=== PATIENT | female | born 1935 | race Caucasian/White ===

== ENCOUNTER 2020-01-11 10:53 | Emergency (ER) | payer MEDICARE, OTHER ==
[~2020-01-11] VITALS: Ht 162 cm; Wt 77.0 kg
[~2020-01-11 10:53] MED LIST: ASPI-74 PO; HYDR12.570 PO; LTN005OP2 OP
--- NOTE | 2020-01-11 11:38 | ED Fall/Injury ---
General Chief Complaint: Upper Extremity Stated Complaint: LEFT ARM INJ Nursing Triage Note: PT STATES SHE FELL OFF HER BACK PORCH, LESS THAN 2 STEPS, CC OF PAIN TO THE LT UPPER ARM, DENIES HITTING HER HEAD OR ANY OTHER PAIN. STATES SHE CAN'T MOVE THE 3-5TH FINGERS VERY WELL AND ARE NUMB. Source: patient Exam Limitations: no limitations History of Present Illness Date Seen by Provider: January 11, 2020 Time Seen by Provider: 11:06 Initial Comments This 84-year-old woman presents to the emergency room with left upper arm injury after missing a step and falling while going out on the porch to tend to ache tomato plant. She denies any other injury. She can feel/hear crepitus at the mid humerus. She takes aspirin but no other blood thinning medications. She denies any prodrome before the fall such as lightheadedness, dizziness, etc. Allergies and Home Medications Allergies Coded Allergies: Penicillins (Unverified Allergy, 05/31/10) Home Medications Hydrocodone/Acetaminophen 1 Each Tablet, 0.5-1 EACH PO Q6H PRN for PAIN- BREAKTHROUGH Prescribed by: ALEJO ROGERS on 01/11/20 1154 Latanoprost 2.5 Ml Drops, 1 DROP OP UD, (Reported) Patient Home Medication List Home Medication List Reviewed: Yes Review of Systems Review of Systems Constitutional: no symptoms reported Eyes: No Symptoms Reported Ears, Nose, Mouth, Throat: no symptoms reported Respiratory: no symptoms reported Cardiovascular: no symptoms reported Gastrointestinal: no symptoms reported Genitourinary: no symptoms reported : No Musculoskeletal: see HPI Skin: other (bruising) Psychiatric/Neurological: No Symptoms Reported Past Qlfyftq-Cksqge-Cquacd Hx Patient Social History Alcohol Use: Denies Use Recreational Drug Use: No Smoking Status: Former Smoker Type Used: Cigarettes Former Smoker, Quit: December 14, 1998 Recent Foreign Travel: No Contact w/Someone Who Travel: No Recent Infectious Disease Expo: No Physical Abuse: No Sexual Abuse: No Mistreated: No Fear: No Immunizations Up To Date Tetanus Booster (TDap): More than 5yrs Seasonal Allergies Seasonal Allergies: Yes Past Medical History Surgeries: No Respiratory: No Cardiac: Yes Atrial Fibrillation Neurological: No Genitourinary: No Gastrointestinal: No Musculoskeletal: No Endocrine: Yes Diabetes, Non-Insulin dep HEENT: No Cancer: No Psychosocial: No Integumentary: No Physical Exam Vital Signs Vital Signs - First Documented 01/11/20 11:07 Temp 36.6 Pulse 110 Resp 20 B/P (MAP) 134/88 (103) Pulse Ox 98 O2 Delivery Room Air Capillary Refill : Less Than 3 Seconds Height, Weight, BMI Height: '" Weight: lbs. oz. kg; 29.00 BMI Method:Stated General Appearance: WD/WN, mild distress HEENT: PERRL/EOMI, normal ENT inspection Neck: normal inspection Cardiovascular: regular rate, rhythm, no edema, no murmur Respiratory: lungs clear, normal breath sounds, no respiratory distress Extremities: other (subtle deformity of the left mid upper arm with tenderness. Remainder of the left upper extremity is unremarkable. Radial pulse. Distal sensation and capillary refill intact. 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, no motor/sensory deficits, alert, normal mood/affect, oriented x 3 Skin: warm/dry, ecchymosis Db Coma Score Best Eye Response: (4) Open Spontaneously Best Verbal Response: (5) Oriented Best Motor Response: (6) Obeys Commands Db Total: 15 Progress/Results/Core Measures Results/Orders My Orders Orders - ALEJO AVALOS MD Humerus, Left, 2 Views (01/11/20 11:12) Vital Signs/I&O 01/11/20 01/11/20 11:07 12:15 Temp 36.6 36.6 Pulse 110 93 Resp 20 20 B/P (MAP) 134/88 (103) 119/81 (103) Pulse Ox 98 98 O2 Delivery Room Air Room Air Blood Pressure Mean: 103 Progress Progress Note : Progress Note X-rays were obtained and comminuted fracture of the left humerus shaft was identified. Case was discussed with Dr. Boykin. Patient was placed in a sling and instructed to follow-up. She declined any pain management while in the ER. Diagnostic Imaging Diagonstic Imaging: Xray Plain Films/CT/US/NM/MRI: other (left humerus) Comments Left humerus x-ray viewed by me and report reviewed. There is a comminuted displaced shaft fracture. See report below. NAME: JESSICA ZELAYA [facility] REC#: [id number] PT STATUS: REG ER : 1935 PHYSICIAN: ALEJO AVALOS MD ADMIT DATE: 01/11/20/ER Signed Date of Exam:01/11/20 HUMERUS, LEFT, 2 VIEWS INDICATION: Post fall TECHNIQUE: 2 views of the left humerus CORRELATION STUDY: None FINDINGS: Comminuted fracture of the left humeral shaft present. There is lateral slightly posterior displacement approximately the width of the main fracture fragment. Additional butterfly component projects posteriorly and laterally as well. There is retraction and impaction of approximately 4 cm. Angulation apex laterally. Visualized portion shoulder and elbow are otherwise unremarkable. IMPRESSION: 1. Comminuted impacted displaced angulated fracture left mid humerus. Dictated by: Dictated on workstation # [id number] Dict: 01/11/20 1153 Trans: 01/11/20 1158 DORCAS [id number] Interpreted by: DALE GIANG DO Electronically signed by: DALE GIANG DO 01/11/20 1158 Departure Impression Primary Impression: Left humeral fracture Qualified Codes: S42.352A - Displaced comminuted fracture of shaft of humer us, left arm, initial encounter for closed fracture Additional Impression: Fall on stairs Qualified Codes: W10.9XXA - Fall (on) (from) unspecified stairs and steps, initial encounter Disposition: 01 HOME, SELF-CARE Condition: Stable Departure-Patient Inst. Referrals: ANDRES BOYKIN DO (PCP/Family) Primary Care Physician Patient Instructions: Upper Arm Fracture Add. Discharge Instructions: You may ice your arm in 20 minute intervals to reduce pain and swelling. Keep your arm in the sling is much as possible. If it must be removed from the sling, have someone help you support the arm. Follow-up with Dr. Boykin as soon as possible. Please call today for follow- up appointment. For minor pain you may use Tylenol up to 1000 mg every 6 hours as needed. Use hydrocodone as prescribed for more severe pain. If you use hydrocodone, you may wish to also use a stool softener such as Colace to prevent constipation. Return to care if you have any further problems or concerns. All discharge instructions reviewed with patient and/or family. Voiced understanding. Scripts Hydrocodone/Acetaminophen (Hydrocodone-Acetamin 5-325 mg) 1 Each Tablet 0.5-1 EACH PO Q6H PRN for PAIN-BREAKTHROUGH, #20 TAB Prov: ALEJO AVALOS MD 01/11/20 Copy Copies To 1: ANDRES BOYKIN JOSHUA T MD January 11, 2020 11:38
[2020-01-11] MEDS ORDERED: HYDR-83 PO (11:54)
--- NOTE | 2020-01-11 11:56 | Diagnostic Imaging Report ---
INDICATION: Post fall TECHNIQUE: 2 views of the left humerus CORRELATION STUDY: None FINDINGS: Comminuted fracture of the left humeral shaft present. There is lateral slightly posterior displacement approximately the width of the main fracture fragment. Additional butterfly component projects posteriorly and laterally as well. There is retraction and impaction of approximately 4 cm. Angulation apex laterally. Visualized portion shoulder and elbow are otherwise unremarkable. IMPRESSION: 1. Comminuted impacted displaced angulated fracture left mid humerus. Dictated by: Dictated on workstation # [id number]
[2020-01-11 12:15] VITALS: BP 119/81
== END 2020-01-11 12:14 | disposition home or self-care (01) ==
LOC: EDUNIT# 10:53 → ER 10:54
DX: S42.352A Displaced comminuted fracture of shaft of humerus, left arm, initial encounter for closed fracture (principal); R40.2142 Coma scale, eyes open, spontaneous, at arrival to emergency department; R40.2252 Coma scale, best verbal response, oriented, at arrival to emergency department; R40.2362 Coma scale, best motor response, obeys commands, at arrival to emergency department; Z88.0 Allergy status to penicillin; Z79.82 Long term (current) use of aspirin; Z87.891 Personal history of nicotine dependence; W10.9XXA Fall (on) (from) unspecified stairs and steps, initial encounter
CPT/HCPCS: 73060

== ENCOUNTER 2023-01-27 04:42 | Inpatient (IN) | payer MEDICARE, OTHER ==
[~2023-01-27] VITALS: Ht 162.5 cm; Wt 74.0 kg
[~2023-01-27 04:42] MED LIST changes: +ACHD5005 PO
--- NOTE | 2023-01-27 05:08 | ED GI ---
General Stated Complaint: ABD PAIN Source of Information: Patient (KALEY LIVINGSTON DO) History of Present Illness Date Seen by Provider: Jan 27, 2023 Time Seen by Provider: 04:55 Initial Comments PT ARRIVES VIA POV FROM HOME WITH GRANDSON PT STATES "I'VE HAD THIS OFF AND ON FOR A LONG, LONG TIME" C/O "GAS CRAMPS" AND IT GETS WORSE UNTIL I THROW UP" PT COMPLAINS OF DIFFUSE LOWER ABDOMINAL PAIN AND CRAMPING FOR THE LAST 3 DAYS CONTINUOUSLY --GETTING WORSE SHE BEGAN HAVING NAUSEA AND VOMITED X 3 JUST PRIOR TO ARRIVAL SHE HAS NOT HAD A BM FOR THE LAST 3 DAYS. SHE HAD DIARRHEA FOR THE 4 DAYS PRIOR TO THAT NO PROBLEMS URINATING SHE THOUGHT SHE MIGHT HAVE HAD A LITTLE FEVER, BUT DID NOT CHECK HER TEMPERATURE. LAST ATE AROUND 1630 YESTERDAY--PANCAKES WITH SYRUP, AND APPLESAUCE SHE HAS BEEN DRINKING LIQUIDS WELL SHE TOOK 30 ML OF MILK OF MAGNESIA AT 2000, WITHOUT RELIEF SHE HAS NOT TAKEN ANYTHING ELSE FOR SYMPTOMS SHE HAS NOT SOUGHT CARE UNTIL NOW SHE HAS HAD CYSTOCOELE AND RECTOCOELE REPAIR. NO OTHER ABDOMINAL SURGERIES SHE HAS HISTORY OF ATRIAL FIBRILLATION, HTN, NIDDM SHE HAS CONTINUED TO TAKE HER REGULAR MEDICATIONS PRESCRIBED. SHE DOES NOT CHECK HER BLOOD SUGAR. PCP: DR. MELÉNDEZ (KALEY LIVINGSTON DO) Allergies and Home Medications Allergies Coded Allergies: Penicillins (Unverified Allergy, Unknown, 01/27/23) Patient Home Medication List Home Medication List Reviewed: Yes (NASREEN SANDOVAL DO) Aspirin (Denice Aspirin) 325 Mg Tablet, 325 MG PO, (Reported) Entered as Reported by: ДМИТРИЙ AHUMADA on 05/31/10 1208 Hydrochlorothiazide (Hctz) 12.5 Mg Cap, 12.5 MG PO, (Reported) Entered as Reported by: ДМИТИРЙ AHUMADA on 05/31/10 1208 Hydrocodone/Acetaminophen (Hydrocodone-Acetamin 5-325 mg) 1 Each Tablet, 0.5-1 EACH PO Q6H PRN for PAIN-BREAKTHROUGH Prescribed by: ALEJO ROGERS on 01/11/20 1154 Latanoprost (Xalatan) 2.5 Ml Drops, 1 DROP OP UD, (Reported) Entered as Reported by: ДМИТРИЙ AHUMADA on 05/31/10 1208 Review of Systems Review of Systems Constitutional: see HPI Respiratory: No Symptoms Reported Cardiovascular: No Symptoms Reported Gastrointestinal: See HPI, Abdomen Distended, Abdominal Pain, Constipated, Diarrhea, Nausea, Vomiting Genitourinary: No Symptoms Reported Musculoskeletal: no symptoms reported Skin: no symptoms reported Psychiatric/Neurological: Anxiety Endocrine: No Symptoms Reported Hematologic/Lymphatic: No Symptoms Reported (KALEY LIVINGSTON DO) Past Rlkzver-Yvahrt-Cuciup Hx Patient Social History Tobacco Use?: Yes Tobacco type used: Cigarettes Smoking Status: Former Smoker Substance use?: No Alcohol Use?: No (SILVIAKALEY DO) Immunizations Up To Date Tetanus Booster (TDap): More than 5yrs (SILVIA,KALEY White DO) Seasonal Allergies Seasonal Allergies: Yes (SILVIA,KALEY Christopher ) Past Medical History Surgeries: Yes (CYSTOCOELE/RECTOCOELE REPAIR) Bladder Surgery, Rectal, Tonsillectomy Respiratory: No Cardiac: Yes Atrial Fibrillation, High Cholesterol, Hypertension Neurological: No Genitourinary: No Gastrointestinal: Yes (INTERMITTENT ABD PAIN/CONSTIPATION) Chronic Constipation Musculoskeletal: Yes (LEFT HUMERUS FX 2020) Fractures Endocrine: Yes Diabetes, Non-Insulin dep HEENT: No Cancer: No Psychosocial: No Integumentary: No Blood Disorders: No (KALEY LIVINGSTON DO) Physical Exam Vital Signs Vital Signs - First Documented 01/27/23 04:55 Temp 36.0 Pulse 123 Resp 16 B/P (MAP) 125/92 (103) (NASRENE SANDOVAL DO) Vital Signs Capillary Refill : (KALEY LIVINGSTON DO) Height/Weight/BMI Height: '" Weight: lbs. oz. 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 nml as tested, no motor/sensory deficits, alert, oriented x 3, other (ANXIOUS) Skin: normal color, warm/dry (KALEY LIVINGSTON DO) Progress/Results/Core Measures Results/Orders Lab Results Laboratory Tests Test 01/27/23 05:00 01/27/23 05:05 Range/Units White Blood Count 14.0 H 4.3-11.0 10^3/uL Red Blood Count 5.26 H 3.80-5.11 10^6/uL Hemoglobin 14.6 11.5-16.0 g/dL Hematocrit 45 35-52 % Mean Corpuscular Volume 85 80-99 fL Mean Corpuscular Hemoglobin 28 25-34 pg Mean Corpuscular Hemoglobin Concent 33 32-36 g/dL Red Cell Distribution Width 13.3 10.0-14.5 % Platelet Count 445 H 130-400 10^3/uL Mean Platelet Volume 9.0 9.0-12.2 fL Immature Granulocyte % (Auto) 1 % Neutrophils (%) (Auto) 82 H 42-75 % Lymphocytes (%) (Auto) 11 L 12-44 % Monocytes (%) (Auto) 6 0-12 % Eosinophils (%) (Auto) 0 0-10 % Basophils (%) (Auto) 0 0-10 % Neutrophils # (Auto) 11.6 H 1.8-7.8 10^3/uL Lymphocytes # (Auto) 1.5 1.0-4.0 10^3/uL Monocytes # (Auto) 0.8 0.0-1.0 10^3/uL Eosinophils # (Auto) 0.0 0.0-0.3 10^3/uL Basophils # (Auto) 0.0 0.0-0.1 10^3/uL Immature Granulocyte # (Auto) 0.1 0.0-0.1 10^3/uL Neutrophils % (Manual) 85 % Lymphocytes % (Manual) 7 % Monocytes % (Manual) 8 % Blood Morphology Comment NORMAL Prothrombin Time 13.3 12.2-14.7 SEC INR Comment 1.0 0.8-1.4 Activated Partial Thromboplast Time 27 24-35 SEC Sodium Level 137 135-145 MMOL/L Potassium Level 3.8 3.6-5.0 MMOL/L Chloride Level 94 L 98-107 MMOL/L Carbon Dioxide Level 29 21-32 MMOL/L Anion Gap 14 5-14 MMOL/L Blood Urea Nitrogen 8 7-18 MG/DL Creatinine 0.80 0.60-1.30 MG/DL Estimat Glomerular Filtration Rate 72 BUN/Creatinine Ratio 10 Glucose Level 195 H 70-105 MG/DL Calcium Level 10.2 H 8.5-10.1 MG/DL Corrected Calcium 10.1 8.5-10.1 MG/DL Magnesium Level 1.9 1.6-2.4 MG/DL Total Bilirubin 0.6 0.1-1.0 MG/DL Aspartate Amino Transf (AST/SGOT) 15 5-34 U/L Alanine Aminotransferase (ALT/SGPT) 20 0-55 U/L Alkaline Phosphatase 77 40-136 U/L Total Protein 7.4 6.4-8.2 GM/DL Albumin 4.1 3.2-4.5 GM/DL Amylase Level 18 L 25-125 U/L Lipase 13 8-78 U/L Urine Color DARK YELLOW Urine Clarity SL CLOUDY Urine pH 8.0 5-9 Urine Specific [place] 1.015 L 1.016-1.022 Urine Protein 2+ H NEGATIVE Urine Glucose (UA) NEGATIVE NEGATIVE Urine Ketones 1+ H NEGATIVE Urine Nitrite NEGATIVE NEGATIVE Urine Bilirubin NEGATIVE NEGATIVE Urine Urobilinogen 2.0 < = 1.0 MG/DL Urine Leukocyte Esterase 1+ H NEGATIVE Urine RBC (Auto) NEGATIVE NEGATIVE Urine RBC NONE /HPF Urine WBC 5-10 H /HPF Urine Squamous Epithelial Cells 2-5 /HPF Urine Crystals NONE /LPF Urine Amorphous Sediment FEW KYLER PHOSPHATE H /LPF Urine Bacteria NEGATIVE /HPF Urine Casts PRESENT /LPF Urine Hyaline Casts RARE /LPF Urine Mucus NEGATIVE /LPF Urine Culture Indicated YES (NASREEN SANDOVAL DO) My Orders Orders - NASREEN SANDOVAL DO Ed Admission (Communication) (01/27/23 06:57) (NASREEN SANDOVAL DO) Medications Given in ED Current Medications Medications Dose Ordered Sig/Yamile Route Start Time Stop Time Status Last Admin Dose Admin Fentanyl Citrate 50 mcg ONCE ONCE IVP 01/27/23 06:15 01/27/23 06:16 DC 01/27/23 06:17 50 MCG Ondansetron HCl 4 mg ONCE ONCE IVP 01/27/23 05:15 01/27/23 05:16 DC 01/27/23 05:11 4 MG (NASREEN SANDOVAL DO) Vital Signs/I&O 01/27/23 04:55 Temp 36.0 Pulse 123 Resp 16 B/P (MAP) 125/92 (103) (NASREEN SANDOVAL DO) Progress Progress Note : Progress Note GIVEN: -IV FLUIDS -ZOFRAN LABS INCLUDING CBC, CMP, AMYLASE/LIPASE, UA ORDERED, ALONG WITH CT ABDOMEN/PEL VIS, AND EKG. VITALS ON ARRIVAL: TEMP 36.0, BP 125/92, HR 123 ( 110'S-130'S ) , RR 16, O2 SAT 98% ON ROOM AIR REVIEWED PRIOR RECORDS--2 ER VISITS FOR INJURIES--LAST ONE IN 2019 0600--CARE TURNED OVER TO DR. SANDOVAL, CT RESULTS PENDING. (KALEY LIVINGSTON DO) Progress Note : Progress Note 0645 patient's care was assumed from Dr. Livingston. Patient CT results were pending. Patient's other labs were reviewed along with repeat physical exam. I was in agreement with documentation of physical exam by Dr. Livingston. Patient CT was reviewed with final interpretation per radiology report. Patient's CT is concerning for small bowel obstruction with some mesenteric inflammation. I did call and discussed with general surgery and on-call Dr. Brown. Patient to be admitted to him with consulting Dr. Croft who was also notified. Patient will be placed on clear liquids with IV fluids. Patient was stable upon transfer to the floor. (NASREEN SANDOVAL DO) Initial ECG Impression Date: Jan 27, 2023 Initial ECG Impression Time: 05:10 Initial ECG Rate: 117 Initial ECG Rhythm: A Fib/Flutter Initial ECG Intervals MA--N/A QRS 74 QT/QTC 246/316 Initial ECG Impression: Atrial Fibrillation w/RVR Initial ECG Comparisson: No Previous ECG Available Comment INFERIOR Q WAVES INTERPRETED BY ME (KALEY LIVINGSTON DO) Departure Impression Primary Impression: Small bowel obstruction Disposition: ADMITTED INPATIENT Condition: Stable Admissions Decision to Admit/Date: Jan 27, 2023 Time/Decision to Admit Time: 06:55 (NASREEN SANDOVAL DO) Departure-Patient Inst. Referrals: KALEY MELÉNDEZ MD (PCP/Family) Primary Care Physician KALEY LIVINGSTON DO Jan 27, 2023 05:08 NASREEN SANDOVAL DO Jan 27, 2023 06:57
[2023-01-27 05:14] LABS: BILIRUBIN,URINE NEGATIVE (NEGATIVE); CLARITY,URINE SL CLOUDY; COLOR,URINE DARK YELLOW; GLUCOSE, URINE (UA) NEGATIVE (NEGATIVE); KETONES,URINE 1+ (NEGATIVE); LEUKOCYTE ESTERASE ,URINE 1+ (NEGATIVE); NITRITE,URINE NEGATIVE (NEGATIVE); PROTEIN,URINE 2+ (NEGATIVE)
[2023-01-27] MEDS ORDERED: ONDANSETRON 4 MG/2 ML (SDV) Z0FRAN IVP ONE (05:15)
[2023-01-27] MEDS ORDERED: NS IV 1000 ML 1,000 ML IV SCH ×2 (05:15→08:30)
[2023-01-27 05:22] LABS: ALBUMIN 4.1 GM/DL (3.2-4.5); BASOPHILS % (AUTO) 0 % (0-10); EOSINOPHILS % (AUTO) 0 % (0-10); HEMATOCRIT 45 % (35-52); HEMOGLOBIN 14.6 g/dL (11.5-16.0); LYMPHOCYTES # (AUTO) 1.5 10^3/uL (1.0-4.0); LYMPHOCYTES % (AUTO) 11 % (12-44); MEAN CORPUSCULAR HEMOGLOBIN 28 pg (25-34); MEAN CORPUSCULAR HGB CONC 33 g/dL (32-36); MEAN CORPUSCULAR VOLUME 85 fL (80-99); MONOCYTES # (AUTO) 0.8 10^3/uL (0.0-1.0); MONOCYTES % (AUTO) 6 % (0-12); NEUTROPHILS # (AUTO) 11.6 10^3/uL (1.8-7.8); NEUTROPHILS % (AUTO) 82 % (42-75); PLATELET COUNT 445 10^3/uL (130-400)
[2023-01-27 05:23] LABS: POTASSIUM 3.8 MMOL/L (3.6-5.0); PROTHROMBIN TIME PATIENT 13.3 SEC (12.2-14.7)
[2023-01-27 05:24] LABS: CALCIUM 10.2 MG/DL (8.5-10.1)
[2023-01-27 05:25] LABS: TOTAL PROTEIN 7.4 GM/DL (6.4-8.2)
[2023-01-27 05:27] LABS: BILIRUBIN,TOTAL 0.6 MG/DL (0.1-1.0)
[2023-01-27 05:28] LABS: AMORPHOUS SEDIMENT,UR FEW AMOR PHOSPHATE /LPF; BACTERIA,URINE NEGATIVE /HPF; HYALINE CASTS, URINE RARE /LPF
[2023-01-27 05:29] LABS: CREATININE SERUM 0.8 MG/DL (0.60-1.30)
[2023-01-27 05:31] LABS: MAGNESIUM 1.9 MG/DL (1.6-2.4)
[2023-01-27] MEDS ORDERED: fentaNYL INJ 100 MCG/2 ML AMP IVP ONE (06:15)
--- NOTE | 2023-01-27 06:19 | Diagnostic Imaging Report ---
PROCEDURE: CT abdomen and pelvis without contrast. TECHNIQUE: Multiple contiguous axial images were obtained through the abdomen and pelvis without the use of intravenous contrast. Auto Exposure Controls were utilized during the CT exam to meet ALARA standards for radiation dose reduction. INDICATION: Abdominal pain. Nausea and vomiting. COMPARISON: None. FINDINGS: The heart is unremarkable. Subsegmental atelectasis is seen in the lung bases. The liver, spleen, pancreas, adrenal glands, and kidneys have a normal noncontrast CT appearance. The gallbladder is unremarkable. There is no pathologically enlarged mesenteric or retroperitoneal adenopathy. Mildly distended fluid-filled loops of small bowel are seen in the abdomen and pelvis. There is associated inflammation within the mesentery with a small volume of free fluid in the abdomen and pelvis. No free air is seen. Diverticula are seen in the descending and sigmoid colon without evidence of acute diverticulitis. No acute osseous abnormalities. There is calcified aortic and iliac atherosclerotic plaque without aneurysm. Ureters and bladder are normal. There is no free air, loculated collection, or adenopathy in the pelvis. IMPRESSION: 1. Findings concerning for small bowel obstruction with fluid-filled dilated loops of small bowel in the abdomen and pelvis. Associated inflammation in the mesentery and small amount of free fluid is present. No free air is seen. Recommend continued close follow-up. 2. Diverticulosis of the descending and sigmoid colon without evidence of acute diverticulitis. Dictated by: Dictated on workstation # [id number]
[2023-01-27 06:34] LABS: NEUTROPHILS % (MANUAL) 85 %
[2023-01-27 06:35] LABS: LYMPHOCYTES % (MANUAL) 7 %; MONOCYTES % (MANUAL) 8 %; RBC MORPH NORMAL
[2023-01-27 07:52] VITALS: BP 119/70
--- NOTE | 2023-01-27 07:58 | Consultation - Hospitalist ---
HPI History of Present Illness: HPI/Chief Complaint Pt is an 87yo female who presented to the emergency department due to abdominal pain and constipation. She reports that she was at a roughly a week ago and ate some chicken and then had a GI illness where she had a lot of diarrhea. That resolved after a few days but then she became constipated. She developed severe abdominal pain and was worried that she had appendicitis or an aneurysm as her mom had an abdominal aneurysm with similar presentation. In the ER she was found to have a small bowel obstruction and was admitted to surgery services. I am consulted for medical management. When I saw patient this morning shortly after arrival to the Medr unit she reports she has already had a bowel movement and is feeling much better and having no pain. She is hopeful for discharge home. Source: patient Date Seen 01/27/23 Attending Physician Diana Orozco MD PCP Admitting Physician: Claribel Brown MD Attending Physician: Claribel Brown MD Referring Physician Date of Admission Jan 27, 2023 at 07:38 Home Medications & Allergies Home Medications Reviewed patient Home Medication Reconciliation performed by pharmacy medication reconciliations rf technician and/or nursing. Patients Allergies have been reviewed. Allergies Allergies Coded Allergies Penicillins (Unverified Allergy, Unknown, 01/27/23) Past Lyvsjcx-Uspicd-Uruzqy Hx Patient Social History Tobacco Use?: Yes Tobacco type used: Cigarettes Smoking Status: Former Smoker Substance use?: No Alcohol Use?: No Seasonal Allergies Seasonal Allergies: Yes Current Status status: No Communicates: Verbally Primary Language: Portuguese Preferred Spoken Language: Portuguese Is interpretation needed?: No Past Medical History Surgeries: Bladder Surgery, Rectal, Tonsillectomy Atrial Fibrillation, High Cholesterol, Hypertension Chronic Constipation Fractures Diabetes, Non-Insulin dep Blood Disorders: No Review of Systems Constitutional: see HPI Physical Exam Physical Exam Vital Signs Vital Signs - First Documented 01/27/23 01/27/23 04:55 07:48 Temp 36.0 Pulse 123 Resp 16 B/P (MAP) 125/92 (103) Pulse Ox 98 O2 Delivery Nasal Cannula O2 Flow Rate 2.00 Capillary Refill : Less Than 3 Seconds Height, Weight, BMI Height: '" Weight: lbs. oz. kg; 27.00 BMI Method:Stated General Appearance: No Apparent Distress, WD/WN Respiratory: Lungs Clear, No Respiratory Distress Cardiovascular: Regular Rate, Rhythm, No Murmur Gastrointestinal: Normal Bowel Sounds, Non Tender, Soft; No Distended, No Guarding, No Rebound Neurologic/Psychiatric: Alert, Oriented x3, Normal Mood/Affect Results Results/Procedures Labs Laboratory Tests 01/27/23 05:00 Patient resulted labs reviewed. Assessment/Plan Assessment and Plan Assess & Plan/Chief Complaint Bowel obstruction Surgery is primary Defer management to them Already had BM Clear liquid diet Pain controlled HTN BP well controlled Resume diltiazem Hold HCTZ and Lasix NIDDMII On metformin at home- hold for now DVT ppx: SCDs and ambulation Will round prn, please callf or any needs WOJCIECH WALDRON MD Jan 27, 2023 07:58
[2023-01-27] MEDS ORDERED: ONDANSETRON 4 MG/2 ML (SDV) Z0FRAN IV PRN (08:30)
[2023-01-27] MEDS ORDERED: CHOLESTYRAMINE 4 GM (QUESTRAN LITE, PREVALITE) PKT PO NR (11:00)
[2023-01-27 11:24] VITALS: BP 133/74
[2023-01-27] MEDS ORDERED: HYDROcodone/APAP 7.5 MG/325 MG (LORTAB, LORCET PLUS) TABLET PO PRN (12:00)
[2023-01-27] MEDS ORDERED: fentaNYL INJ 100 MCG/2 ML AMP IVP PRN (12:00)
--- NOTE | 2023-01-27 14:11 | Diagnostic Imaging Report ---
PROCEDURE: US Abdomen, limited. INDICATION: Nausea and vomiting with abdominal pain TECHNIQUE: Multiple grayscale sonographic images were obtained of the right upper quadrant of the abdomen. CORRELATION STUDY: None FINDINGS: LIVER: There is uniform echotexture within the visualized portions of the liver. The main portal vein is patent and with normal direction of flow. Liver length 17.3 cm. GALLBLADDER: The gallbladder demonstrates no definitive shadowing gallstones, abnormal gallbladder wall thickening or pericholecystic fluid. COMMON BILE DUCT: Nondilated at 0.3 cm. PANCREAS: Visualized portions appearing unremarkable. AORTA/IVC: Not well visualized. RIGHT KIDNEY: 10.1 x 3.8 x 4.5 cm. No hydronephrosis. OTHER: None. IMPRESSION: 1. Negative appearing right upper quadrant abdominal ultrasound. Dictated by: Dictated on workstation # [id number]
[2023-01-27] MEDS ORDERED: MV-M1TAB57 PO (16:42)
[2023-01-27] MEDS ORDERED: FURO20TA4 PO (16:42)
[2023-01-27] MEDS ORDERED: FERR-84 PO (16:42)
[2023-01-27] MEDS ORDERED: FLAX10004 PO (16:42)
[2023-01-27] MEDS ORDERED: HYDR25TA4 PO (16:42)
[2023-01-27] MEDS ORDERED: CHOL-34 PO (16:42)
[2023-01-27] MEDS ORDERED: OMEG100032 PO (16:42)
[2023-01-27] MEDS ORDERED: ASPI325T32 PO (16:42)
[2023-01-27] MEDS ORDERED: METF-865 PO (16:42)
[2023-01-27] MEDS ORDERED: MV-M1CAP24 PO (16:42)
[2023-01-27] MEDS ORDERED: DILT30TA PO (16:42)
[2023-01-27 17:25] VITALS: BP 132/84
--- NOTE | 2023-01-27 18:06 | Diagnostic Imaging Report ---
RADIOPHARMACEUTICAL: 5.41 mCi Tc-99m Choletec IV INDICATION: Right upper quadrant pain. COMPARISON: Ultrasound dated 01/27/2023. TECHNIQUE: Anterior dynamic imaging for 1 hour. Additional 70 minutes of imaging was obtained after patient ingested an 8-ounce can of Ensure. FINDINGS: There is homogenous uptake throughout the liver. The gallbladder is visualized at 55 minutes and small bowel at 15 minutes. After ingesting a can of Ensure, there is normal contraction of the gallbladder with normal calculated GBEF at 52%. IMPRESSION: 1. Normal HIDA Scan without evidence of cystic or common duct obstruction. 2. Normal GBEF of 52%. Dictated by: Dictated on workstation # [id number]
[2023-01-27 19:24] VITALS: BP 114/60
--- NOTE | 2023-01-27 19:59 | HISTORY AND PHYSICAL ---
ATTENDING PRIMARY CARE PHYSICIAN: Trey Del Rosario DO. HISTORY OF PRESENT ILLNESS: The patient is an 87-year-old female, who presented to [facility] Emergency Department early this morning for crampy abdominal pain, abdominal distention, followed by nausea and vomiting. She states that she had similar symptoms approximately 1 week ago and did present to the Emergency Department at that time as well and had stated that she also had many episodes of diarrhea. After arriving home, the crampy abdominal pain persisted as well as the intermittent episodes of nausea; however, no emesis. She states that the diarrhea resolved and did change to constipation. She states that she has had issues with this as well for many years. She has never had any intraabdominal surgeries before, only rectocele and cystocele repair. A CT scan was performed, which did show some dilated loops of small bowel; however, no transition zone and this may be more consistent with an ileus. There was a distended gallbladder. Since being admitted, she states that her symptoms did improve. She is now undergoing a HIDA scan. PAST MEDICAL HISTORY: History of atrial fibrillation, hypertension, hypercholesterolemia, diabetes. PAST SURGERIES: Cystocele and rectocele repair, tonsillectomy, open reduction and internal fixation of left humeral fracture in 2019. ALLERGIES: PENICILLIN. MEDICATIONS: Aspirin 325 mg daily, hydrochlorothiazide 12.5 mg daily, hydrocodone 5/325 mg every 6 hours p.r.n., latanoprost eye drops every other day. SOCIAL HISTORY: Previous smoke, quit 15 years ago, 40 pack years. Negative alcohol. FAMILY HISTORY: A sister with malignant brain tumor, daughter with breast cancer. VITAL SIGNS: Temperature 36.0, blood pressure 132/84, pulse 105, respirations 18, pulse ox 93% on room air. REVIEW OF SYSTEMS: This is a well-nourished female, who is currently undergoing a HIDA scan. At this time, she is in no acute distress. She does not report any chest pain. No cough or sputum production as well as no chest pain, palpitations or any diaphoresis. She has had at least a 1-week history of intermittent episodes of nausea and at least dry heaving or vomiting. Approximately 1 week ago, she also had significant amount of diarrhea; however, now is constipated. Upon further questioning, she reports that she has had similar symptoms like this before approximately every 4 to 6 months. No red blood per rectum, no dark tarry stools. No fever, chills, no recent inadvertent weight loss. All other review of systems negative. PHYSICAL EXAMINATION: CHEST: Few scattered rales bilaterally. HEART: Regular, no murmurs. EXTREMITIES: No lower extremity edema. Negative Homans sign. HEENT: No scleral icterus. No cervical lymphadenopathy. ABDOMEN: Soft, nondistended. There is mild discomfort in the epigastric region as well as the right upper abdominal quadrant upon deep palpation. No peritoneal signs. No hernias. SKIN: Warm, dry. LABORATORY DATA: WBC 14, hemoglobin 14.6, hematocrit 45, platelets 445. BUN 14, creatinine 0.8. Liver function enzymes normal. Urinalysis, leukocyte esterase positive. ASSESSMENT AND PLAN: An 87-year-old female with intermittent episodes of nausea and vomiting, crampy abdominal pain, more along the right side of the abdomen as well as intermittent episodes of nausea and vomiting as well as alternating episodes of diarrhea as well as constipation. This constellation of symptoms is broad; however, based on her symptomatology, we feel that this may be related to symptomatic biliary dyskinesia. The CT scan did show dilated gallbladder and an ultrasound was then performed, which did not show any gallstones and now, she is undergoing a HIDA scan as well as calculation of an ejection fraction. She also has urinary tract infection and we will treat this with antibiotics. If she does have reproduction of signs and symptoms with the crampy abdominal pain as well as nausea or potentially diarrhea after the administration of the Kinevac analog, this would be considered a positive test for biliary dyskinesia and if this were the case, we would then recommend a laparoscopic cholecystectomy. If this is negative, we may proceed with an upper gastrointestinal endoscopy to look for the possibility of gastritis and possibly gastric or duodenal ulceration. We will also consult internal medicine for adequate medical evaluation and care. Job ID: [id number] DocumentID: [id number] Dictated Date: 01/27/2023 19:14:19 [employer] Date: 01/27/2023 19:57:00 Dictated By: JACK SHEPARD MD
[2023-01-27] MEDS ORDERED: HYDR-3817 PO (20:03)
[2023-01-27] MEDS ORDERED: CHOL210P2 PO (20:03)
[2023-01-27] MEDS ORDERED: ONDA-105 PO (20:03)
--- NOTE | 2023-01-27 20:04 | Discharge Inst-Surgical ---
D/C Lap Instructions-DEVYN New, Converted, or Re-Newed RX: RX on Chart Follow Up PRN Activity as tolerated No driving for 24 hours No driving while on pain medications Regular Diet Symptoms to Report: Fever over 101 degree F, Nausea/Vomiting Infection Signs and Symptoms to report: Increased redness, Foul odor of wound, Increased drainage Bathing instructions: May shower Operative Area Clean/Dry; Keep incision clean/dry If any problems/questions: Contact your physician or go to Emergency Room JACK SHEPARD MD Jan 27, 2023 20:04
[2023-01-27] MEDS ORDERED: LEVO-55 PO (20:07)
[2023-01-27 23:16] VITALS: BP 114/60
[2023-01-28 03:11] VITALS: BP 124/63
[2023-01-28 05:33] LABS: BASOPHILS % (AUTO) 1 % (0-10); EOSINOPHILS # (AUTO) 0.2 10^3/uL (0.0-0.3); EOSINOPHILS % (AUTO) 3 % (0-10); HEMATOCRIT 37 % (35-52); HEMOGLOBIN 11.6 g/dL (11.5-16.0); LYMPHOCYTES # (AUTO) 1.2 10^3/uL (1.0-4.0); LYMPHOCYTES % (AUTO) 19 % (12-44); MEAN CORPUSCULAR HEMOGLOBIN 27 pg (25-34); MEAN CORPUSCULAR HGB CONC 31 g/dL (32-36); MEAN CORPUSCULAR VOLUME 87 fL (80-99); MEAN PLATELET VOLUME 8.9 fL (9.0-12.2); MONOCYTES # (AUTO) 0.6 10^3/uL (0.0-1.0); MONOCYTES % (AUTO) 9 % (0-12); NEUTROPHILS # (AUTO) 4.2 10^3/uL (1.8-7.8); NEUTROPHILS % (AUTO) 68 % (42-75); PLATELET COUNT 324 10^3/uL (130-400); WHITE BLOOD COUNT 6.2 10^3/uL (4.3-11.0)
[2023-01-28 05:43] LABS: CALCIUM 8.8 MG/DL (8.5-10.1)
[2023-01-28 05:48] LABS: CREATININE SERUM 0.73 MG/DL (0.60-1.30)
[2023-01-28 07:22] VITALS: BP 113/56
[2023-01-28] MEDS ORDERED: PANTOPRAZOLE 40 MG (PROTONIX) VIAL IV SCH (09:00)
[2023-01-28] MEDS ORDERED: CHOLESTYRAMINE 4 GM (QUESTRAN LITE, PREVALITE) PKT PO SCH (10:00)
[2023-01-28 11:51] VITALS: BP 123/78
== END 2023-01-28 12:27 | disposition home or self-care (01) | DRG 389 ==
LOC: EDUNIT# 04:42 → ER 04:44 → 4TH 07:38
PROVIDERS: ADMIT Surgery; ATTEND Surgery
DX: K56.609 Unspecified intestinal obstruction, unspecified as to partial versus complete obstruction (principal); N39.0 Urinary tract infection, site not specified; I48.91 Unspecified atrial fibrillation; E78.00 Pure hypercholesterolemia, unspecified; I10 Essential (primary) hypertension; K59.09 Other constipation; E11.9 Type 2 diabetes mellitus without complications; Z87.891 Personal history of nicotine dependence; Z79.82 Long term (current) use of aspirin; Z79.899 Other long term (current) drug therapy; R19.7 Diarrhea, unspecified
CPT/HCPCS: 36415; 74176; 76705; 78227; 80048; 80053; 81000; 82150; 83690; 83735; 85007; 85025; 85027; 85610; 85730; 87088; 93005; 93041